=== PATIENT | female | born 1970 | race Two or more races ===

== ENCOUNTER 2017-01-13 12:47 | Emergency (ER) | payer BC ==
--- NOTE | 2017-01-13 13:33 | ED.ADGEN ---
Past History Past Medical History: Depression, Hypertension, Other Past Surgical History: Other Alcohol Use: Occasionally Drug Use: Marijuana Adult General Chief Complaint Chief Complaint Skin rash bilateral feet [facility] HPI Patient is a 46 year old female who presents with skin rash to the dorsum of the right foot and posterior left ankle where she had recently just had new tattoos placed she reports that is erythematous and painful no fever no sedating and swelling or drainage. There was some trace amount of drainage to the left posterior medial ankle that's now dry. Denies any fever. Denies any IV drug use although she has multiple lesions on her skin consistent with possible meth use. Denies any specific joint pains Review of Systems Review of Systems Constitutional: Denies fever or chills [] Eyes: Denies change in visual acuity, redness, or eye pain [] HENT: Denies nasal congestion or sore throat [] Respiratory: Denies cough or shortness of breath [] Cardiovascular: No additional information not addressed in HPI [] GI: Denies abdominal pain, nausea, vomiting, bloody stools or diarrhea [] : Denies dysuria or hematuria [] Musculoskeletal: Denies back pain or joint pain [] Integument: Please see history of present illness [] Neurologic: Denies headache, focal weakness or sensory changes [] Endocrine: Denies polyuria or polydipsia [] All review of systems were negative except as mentioned in the history of present illness Allergies Allergies Allergies Coded Allergies Type Severity Reaction Last Updated Verified Sulfa (Sulfonamide Antibiotics) Allergy Unknown 01/13/17 Yes codeine Allergy Unknown 01/13/17 Yes Physical Exam Physical Exam Constitutional: Well developed, well nourished, no acute distress, non-toxic appearance. [] HENT: Normocephalic, atraumatic, bilateral external ears normal, oropharynx moist, no oral exudates, nose normal. [] Eyes: PERRLA, EOMI, conjunctiva normal, no discharge. [] Neck: Normal range of motion, no tenderness, supple, no stridor. [] Cardiovascular:Heart rate regular rhythm, no murmur [] Lungs & Thorax: Bilateral breath sounds clear to auscultation [] Abdomen: Bowel sounds normal, soft, no tenderness, no masses, no pulsatile masses. [] Skin: Warm, dry, no erythema, right foot: No tattoo dorsal foot with some faint surrounding erythema consistent with possible mild cellulitis. Left ankle tattoo seen left medial posterior ankle with surrounding erythema notes mild some dry drainage in the middle of the tattooand soft tissue swelling to the joint itself 2+ pulses in the foot and ankle bilaterally. Neurovascularly intact.. [] Back: No tenderness, no CVA tenderness. [] Extremities: No tenderness, no cyanosis, no clubbing, ROM intact, no edema. [] Neurologic: Alert and oriented X 3, normal motor function, normal sensory function, no focal deficits noted. [] Psychologic: Affect normal, judgement normal, mood normal. [] Current Patient Data Vital Signs Vital Signs Date Time Temp Pulse Resp B/P (MAP) Pulse Ox O2 Delivery O2 Flow Rate FiO2 01/13/17 12:50 98.2 79 18 97 Room Air EKG EKG [] Radiology/Procedures Radiology/Procedures [] Course & Med Decision Making Course & Med Decision Making Patient is stable for outpatient management with oral antibiotics and topical ointment to the left ankle area. Given precautions regarding joint infections and spread of cellulitis and need for return. Pertinent Labs and Imaging studies reviewed. (See chart for details) [] Final Impression Final Impression Bilateral foot since ankle cellulitis secondary to infected tattoo [] Problems: Dragon Disclaimer Dragon Disclaimer This electronic medical record was generated, in whole or in part, using a voice recognition dictation system. EDGAR ROBB MD Jan 13, 2017 13:33
[2017-01-13] MEDS ORDERED: MUPI15CR TP (13:37)
[2017-01-13] MEDS ORDERED: CLIN150C14 PO (13:37)
[2017-01-13 14:15] VITALS: BP 127/83
== END 2017-01-13 14:15 | disposition home or self-care (01) ==
LOC: ER 12:47
DX: L03.116 Cellulitis of left lower limb (principal); L03.115 Cellulitis of right lower limb; L81.8 Other specified disorders of pigmentation; I10 Essential (primary) hypertension; F12.10 Cannabis abuse, uncomplicated; Z88.2 Allergy status to sulfonamides; Z88.6 Allergy status to analgesic agent
CPT/HCPCS: 99283